=== PATIENT | female | born 1980 | race Caucasian/White ===

== ENCOUNTER → 2016-03-18 | Outpatient (CLI) | payer OTHER ==
[~2016-03-18] MED LIST: METHOTREXATE SODIUM (PF) 25 MG/ML 2 ML VIAL IM ONE
[2016-03-18 15:41] VITALS: BP 116/74; PULSE 73; RESP 16; TEMP 97.3
== END | disposition home or self-care (01) ==
LOC: PROCWHC3 14:11
PROVIDERS: ATTEND Obstetrics & Gynecology
DX: O00.90 Unspecified ectopic pregnancy without intrauterine pregnancy (principal); Z3A.00 Weeks of gestation of pregnancy not specified
CPT/HCPCS: 96402; J9260

== ENCOUNTER 2016-03-20 14:28 | Emergency (ER) | payer OTHER ==
--- NOTE | 2016-03-20 15:13 | ED ---
General Adult HPI - General Chief complaint: Abdominal Pain Stated complaint: Abd Pain Time Seen by Provider: 03/20/16 15:10 Source: patient Mode of arrival: ambulatory Limitations: no limitations - History of Present Illness Initial comments: Patient is a 36 old female presenting with abdominal pain, nausea. Patient states she woke up with right lower quadrant pain around 9:30 this morning. Patient had not taken Tylenol or Motrin. Patient states she had methotrexate on Thursday for an ectopic . 10 days ago patient presented to [facility] with the same pain for which she was diagnosed with ectopic as she had a positive test with an IUD. Patient denies fever, chills, chest pain, shortness breath. - Related Data Home Medications Medication Instructions Recorded Confirmed Ibuprofen [Motrin] 400 mg PO Q6HR PRN 03/20/16 03/20/16 Methotrexate Inj 1 injection SQ Q7D 03/20/16 03/20/16 Leah Iud 1 device VAGINAL DIRECTED 03/20/16 03/20/16 Previous Rx's Medication Instructions Recorded Ibuprofen [Motrin] 600 mg PO Q6HR PRN #20 tab 03/20/16 Allergies Allergy/AdvReac Type Severity Reaction Status Date / Time azithromycin [From Zithromax] Allergy Mild Itching Verified 03/20/16 14:52 Penicillins Allergy Unknown Unknown Verified 03/20/16 14:52 Childhood Review of Systems ROS Statement: Those systems with pertinent positive or pertinent negative responses have been documented in the HPI. Constitutional: No fever and no chills. HENT: No congestion, no rhinorrhea and no sore throat. Eyes: No discharge and no redness. Respiratory: No cough and no shortness of breath. Cardiovascular: No chest pain and no palpitations. Gastrointestinal: +nausea, no vomiting, +abdominal pain and no diarrhea. Genitourinary: No dysuria and no hematuria. Musculoskeletal: No back pain and no arthralgias. Skin: No pallor and no rash. Neurological: No dizziness and No headaches. ROS Other: All systems not noted in ROS Statement are negative. Past Medical History Past Medical History: No Reported History History of Any Multi-Drug Resistant Organisms: None Reported Past Surgical History: Section Additional Past Surgical History / Comment(s): January 2015 - IUD implantation Past Psychological History: No Psychological Hx Reported Smoking Status: Heavy tobacco smoker Past Alcohol Use History: None Reported Past Drug Use History: None Reported - Past Family History Mother Family Medical History: Cancer, Hypertension General Exam - General Exam Comments Initial Comments: Constitutional: Patient appears well-developed and well-nourished. No distress. Head: Normocephalic and atraumatic. Eyes: Conjunctivae and EOM are normal. Right eye exhibits no discharge. Left eye exhibits no discharge. No scleral icterus. Neck: Normal range of motion. Neck supple. Cardiovascular: Normal rate and regular rhythm. No murmur heard. Pulmonary/Chest: Effort normal and breath sounds normal. No respiratory distress. No wheezes. Abdominal: Soft. No distension. Negative McBurney's. Tenderness is right lower pelvic closer to midline. There is no rebound and no guarding. Musculoskeletal: Normal range of motion. No edema or tenderness. Neurological: Patient alert and oriented to person, place, and time. Skin: Skin is warm and dry. Not diaphoretic. Nursing notes and vitals reviewed. Limitations: no limitations Course Vital Signs 03/20/16 03/20/16 03/20/16 14:30 19:58 22:08 Temperature 97.9 F 97.8 F Pulse Rate 103 H 68 69 Respiratory 18 16 16 Rate Blood Pressure 117/77 116/70 119/59 O2 Sat by Pulse 100 99 98 Oximetry - Reevaluation(s) Reevaluation #1: On reevaluation patient is feeling better after morphine. Dr. Johnson was contacted and recommending ultrasound at this point. Medical Decision Making - Medical Decision Making Patient is a 36-year-old female currently being treated for ectopic as she had a positive test and negative IUP with IUD in place. Today patient had acute right lower quadrant pain for which she had 10 days ago when she was first diagnosed with ectopic . Patient is status post methotrexate treatment. Patient was given morphine with resolution of pain. CBC, BMP, UA unremarkable. Patient's beta hCG is 174. Ultrasound showed a right adnexal mass which is smaller than the original from ultrasound done 10 days ago. Care was discussed with Dr. Arriaga who agreed with management of patient and agreeable with disposition home. Patient was given education of ectopic and when to return to emergency Department. Prior to discharge, patient was resting comfortably in bed. Course of stay improved. Abdomen soft and nontender. Denies pain. Discussed physical exam and diagnostic tests with patient. Questions answered and patient is agreeable to discharge with close follow up with Primary Care Physician. Instructed to return to Emergency Department if symptoms worsen. - Lab Data Result diagrams: 03/20/16 16:08 03/20/16 16:08 Lab Results 03/20/16 03/20/16 03/20/16 Range/Units 16:08 16:08 16:08 WBC 10.3 (3.8-10.6) k/uL RBC 4.88 (3.80-5.40) m/uL Hgb 14.6 (11.4-16.0) gm/dL Hct 43.9 (34.0-46.0) % MCV 90.1 (80.0-100.0) fL MCH 29.9 (25.0-35.0) pg MCHC 33.2 (31.0-37.0) g/dL RDW 12.7 (11.5-15.5) % Plt Count 235 (150-450) k/uL Neutrophils % 81 % Lymphocytes % 15 % Monocytes % 2 % Eosinophils % 1 % Basophils % 0 % Neutrophils # 8.4 H (1.3-7.7) k/uL Lymphocytes # 1.6 (1.0-4.8) k/uL Monocytes # 0.2 (0-1.0) k/uL Eosinophils # 0.1 (0-0.7) k/uL Basophils # 0.0 (0-0.2) k/uL Sodium 140 (137-145) mmol/L Potassium 4.1 (3.5-5.1) mmol/L Chloride 103 (98-107) mmol/L Carbon Dioxide 25 (22-30) mmol/L Anion Gap 12 mmol/L BUN 9 (7-17) mg/dL Creatinine 0.70 (0.52-1.04) mg/dL Est GFR (MDRD) Af Amer >60 (>60 ml/min/1.73 sqM) Est GFR (MDRD) Non-Af >60 (>60 ml/min/1.73 sqM) Glucose 91 (74-99) mg/dL Calcium 9.5 (8.4-10.2) mg/dL HCG, Quant 174.7 mIU/mL Urine Color Light Yellow Urine Appearance Clear (Clear) Urine pH 6.5 (5.0-8.0) Ur Specific [place] 1.006 (1.001-1.035) Urine Protein Negative (Negative) Urine Glucose (UA) Negative (Negative) Urine Ketones Negative (Negative) Urine Blood Moderate H (Negative) Urine Nitrate Negative (Negative) Urine Bilirubin Negative (Negative) Urine Urobilinogen <2.0 (<2.0) mg/dL Ur Leukocyte Esterase Negative (Negative) Urine RBC 17 H (0-5) /hpf Urine WBC 3 (0-5) /hpf Ur Squamous Epith Cells 1 (0-4) /hpf Urine Bacteria Rare H (None) /hpf Urine Mucus Rare H (None) /hpf Disposition Clinical Impression: Abdominal pain, Ectopic Disposition: HOME SELF-CARE Condition: Good Instructions: Abdominal Pain (ED), Ectopic (ED) Prescriptions: Ibuprofen [Motrin] 600 mg PO Q6HR PRN #20 tab PRN Reason: Pain Referrals: Tameka Gordon MD [Primary Care Provider] - 1-2 days Jessee Arriaga DO [Doctor of Osteopathic Medicine] - 1-2 days
[2016-03-20] MEDS ORDERED: SODIUM CHLORIDE 0.9% 1,000 ML IV STA (15:38)
[2016-03-20 16:29] LABS: Basophils % (A) 0 %; CH 30.6; CHCM 34.1; Eosinophils # (A) 0.1 k/uL (0-0.7); Eosinophils % (A) 1 %; HCT 43.9 % (34.0-46.0); HGB 14.6 gm/dL (11.4-16.0); Luc # (Auto) 0.06; Luc % (Auto) 1; Lymphocytes # (A) 1.6 k/uL (1.0-4.8); Lymphocytes % (A) 15 %; MCH 29.9 pg (25.0-35.0); MCHC 33.2 g/dL (31.0-37.0); MCV 90.1 fL (80.0-100.0); Mean Platelet Volume 6.6; Monocytes # (A) 0.2 k/uL (0-1.0); Monocytes % (A) 2 %; Neutrophils # (A) 8.4 k/uL (1.3-7.7); Neutrophils % (A) 81 %; RBC 4.88 m/uL (3.80-5.40); RDW 12.7 % (11.5-15.5); WBC 10.3 k/uL (3.8-10.6); WBC (Perox) 9.92
[2016-03-20 16:39] LABS: Appearance,Urine Clear (Clear); Bacteria,Urine Rare /hpf; Bilirubin,Urine Negative (Negative); Glucose,Urine (UA) Negative (Negative); Ketones,Urine Negative (Negative); Leukocyte Esterase,Urine Negative (Negative); Mucus,Urine Rare /hpf; Nitrite,Urine Negative (Negative); PH, Urine 6.5 (5.0-8.0); Particle Count 2795; Protein,Urine Negative (Negative); RBC,Urine 17 /hpf (0-5); Specific Gravity,Urine 1.006 (1.001-1.035); Squamous Epithelial Cell,Urine 1 /hpf (0-4); UA Billing (MACRO vs. MICRO) MICRO; Urobilinogen,Urine <2.0 mg/dL (<2.0); WBC,Urine 3 /hpf (0-5)
[2016-03-20 16:42] LABS: Anion Gap 12 mmol/L; Blood Urea Nitrogen 9 mg/dL (7-17); Calcium 9.5 mg/dL (8.4-10.2); Carbon Dioxide 25 mmol/L (22-30); Chloride 103 mmol/L (98-107); Glucose 91 mg/dL (74-99); Non-African American GFR(MDRD) >60 (>60 ml/min/1.73 sqM); Potassium 4.1 mmol/L (3.5-5.1); Sodium 140 mmol/L (137-145)
[2016-03-20 16:57] LABS: HCG,Quantitative Serum 174.7 mIU/mL
[2016-03-20] MEDS ORDERED: MORPHINE SULFATE 4 MG/ML SYRINGE IVP STA (17:00)
[2016-03-20 20:00] VITALS: RESP 16; TEMP 97.8
--- NOTE | 2016-03-20 20:49 | US ---
EXAMINATION TYPE: US transvaginal DATE OF EXAM: 03/20/2016 8:04 PM COMPARISON: Ultrasound at [facility] March 09, 2016 CLINICAL HISTORY: Bleeding since 03/05/2016, ectopic rt side, 2 cycles of methotrexate,IUD. TECHNIQUE: Transvaginal (TV) Date of LMP: 03/05/2016 EXAM MEASUREMENTS: Uterus: 6.7 x 4.2 x 3.8 cm Endometrial Stripe: 0.6 cm Right Ovary: 3.2 x 2.4 x 2.1 cm Left Ovary: 2.7 x 1.5 x 1.7 cm ANATOMIC STRUCTURES: 1. Uterus: Anteverted wnl 2. Endometrium: IUD seen, appears low 3. Right Ovary: wnl 4. Left Ovary: wnl Spectral, color and waveform doppler imaging shows good arterial and venous flow within the ovaries ; there is no evidence for ovarian torsion. 5. Bilateral Adnexa: Rnight adnexal hypoechoic and relatively homogeneous-echotexture mass is seen adjacent to the rig ht ovary and uterus. This mass currently measures 2.0 x 2.0 x 1.9 cm. On the comparison ultrasound examination of March 09, 2016 this mass showed both solid and cysti c components and was, as such, more heterogeneous at that time and previously measured 3.8 x 3.5 x 2. 9 cm. 6. Posterior cul-de-sac: free fluid noted IMPRESSION: INTERVAL DECREASE IN THE RIGHT ADNEXAL MASS WHEN COMPARED WITH THE PRIOR ULTRASOUND OF MARCH 09 7.
[2016-03-20 22:09] VITALS: BP 119/59; PULSE 69
== END 2016-03-20 22:09 | disposition home or self-care (01) ==
LOC: EC 14:28
DX: O00.90 Unspecified ectopic pregnancy without intrauterine pregnancy (principal); Z97.5 Presence of (intrauterine) contraceptive device; Z88.0 Allergy status to penicillin; Z88.1 Allergy status to other antibiotic agents; F17.200 Nicotine dependence, unspecified, uncomplicated
CPT/HCPCS: 36415; 80048; 85025; 81001; 84702; 87086; 93975; 76830; 96374; 96361; 99284; J2270

== ENCOUNTER → 2016-03-25 | Outpatient (CLI) | payer OTHER | END | disposition home or self-care (01) | LOC: LABWHC1 13:01 | PROVIDERS: ATTEND Obstetrics & Gynecology | DX: O00.90 Unspecified ectopic pregnancy without intrauterine pregnancy (principal); Z3A.00 Weeks of gestation of pregnancy not specified | CPT/HCPCS: 36415; 84702 ==

== ENCOUNTER → 2016-03-28 | Outpatient (CLI) | payer OTHER | END | disposition home or self-care (01) | LOC: LABWHC1 14:12 | PROVIDERS: ATTEND Obstetrics & Gynecology | DX: O00.90 Unspecified ectopic pregnancy without intrauterine pregnancy (principal); Z3A.00 Weeks of gestation of pregnancy not specified | CPT/HCPCS: 36415; 84702 ==

== ENCOUNTER → 2016-04-02 | Outpatient (CLI) | payer OTHER | END | disposition home or self-care (01) | LOC: LABWHC1 07:38 | PROVIDERS: ATTEND Obstetrics & Gynecology | DX: O00.90 Unspecified ectopic pregnancy without intrauterine pregnancy (principal); Z3A.00 Weeks of gestation of pregnancy not specified | CPT/HCPCS: 36415; 84702 ==

== ENCOUNTER → 2016-04-10 | Outpatient (CLI) | payer OTHER | END | disposition home or self-care (01) | LOC: LABWHC1 07:26 | PROVIDERS: ATTEND Obstetrics & Gynecology | DX: O00.90 Unspecified ectopic pregnancy without intrauterine pregnancy (principal) | CPT/HCPCS: 36415; 84702 ==

== ENCOUNTER → 2016-04-18 | Outpatient (CLI) | payer OTHER | END | disposition home or self-care (01) | LOC: LABWHC1 09:38 | PROVIDERS: ATTEND Obstetrics & Gynecology | DX: O00.90 Unspecified ectopic pregnancy without intrauterine pregnancy (principal); Z3A.00 Weeks of gestation of pregnancy not specified | CPT/HCPCS: 36415; 84702 ==

== ENCOUNTER → 2016-07-07 | Outpatient (CLI) | payer OTHER | END | disposition home or self-care (01) | LOC: LABWHC1 16:15 | PROVIDERS: ATTEND Obstetrics & Gynecology | DX: Z34.90 Encounter for supervision of normal pregnancy, unspecified, unspecified trimester (principal); Z3A.00 Weeks of gestation of pregnancy not specified | CPT/HCPCS: 36415; 84702 ==

== ENCOUNTER → 2016-07-18 | Outpatient (CLI) | payer OTHER ==
[2016-07-18 16:10] LABS: CH 30.5; CHCM 34.7; HCT 40.3 % (34.0-46.0); HGB 13.7 gm/dL (11.4-16.0); MCV 88.2 fL (80.0-100.0); Mean Platelet Volume 7.1; RBC 4.57 m/uL (3.80-5.40); RDW 12.3 % (11.5-15.5); WBC 9.4 k/uL (3.8-10.6)
[2016-07-18 16:27] LABS: Glucose 83 mg/dL (74-99); Non-African American GFR(MDRD) >60 (>60 ml/min/1.73 sqM)
[2016-07-18 17:03] LABS: Hepatitis B Surface Ag Index 0.05
--- NOTE | 2016-07-19 14:03 | US ---
EXAMINATION TYPE: US OB <= 14 wk fetus DATE OF EXAM: 07/18/2016 3:52 PM COMPARISON: NONE CLINICAL HISTORY: Z36 Confirm dates; Smoker; (history ectopic right ovary March 2016 ) EXAM PERFORMED: Transabdominal (TA) EXAM MEASUREMENTS: GESTATIONAL AGE / DATING Physician Established: ( 7 weeks/6 days) EDC: 02/28/2017 Dates by LMP: (7 weeks/6 days) EDC: 02/28/2017 Dates by First Scan: today Dates by Current Scan for: (8 weeks/0 days) EDC: 02/27/2017 MATERNAL ANATOMY Uterus: 11.0 x 6.8 x 4.1cm Right Ovary: 2.8 x 1.7 x 2.0cm Left Ovary: 2.3 x 1.6 x 2.7cm Post CDS / Adnexa: wnl Presence of free fluid: no Presence of corpus luteal cyst: in right ovary = 1.9 x 1.5 x 1.5 Presence of subchorionic bleed: no GESTATION / SURVEY CRL: 1.6cm (8 weeks/0 days) Yolk Sac (normal less than 6mm): 3.9mm Heart Rate: 168 bpm Rhythm: Normal IUP: Viable IUP Date of LMP: 05/24/2016 Beta HcG (if available): NA Single, live, IUP, 8 weeks/0 days, EDC: 02/27/2017; HR 168bpm. IMPRESSION: VIABLE INTRAUTERINE GESTATION WITH A GESTATIONAL AGE OF 8 WEEKS +/- 5 DAYS. ESTIMATED DATE OF CONFINE MENT BASED ON THIS EXAMINATION IS 02/27/2017.
== END | disposition home or self-care (01) ==
LOC: RADUSWWP 15:33
PROVIDERS: ATTEND Obstetrics & Gynecology
DX: Z36 Encounter for antenatal screening of mother (principal); Z3A.08 8 weeks gestation of pregnancy
CPT/HCPCS: 36415; 76801; 82565; 82947; 85027; 86762; 86780; 86850; 86900; 86901; 87340

== ENCOUNTER → 2016-09-30 | Outpatient (CLI) | payer OTHER ==
[2016-10-01 09:06] LABS: Alpha Fetoprotein 57.2 ng/mL; B-HCG (M.O.M.) 0.77; Gestational Age (days) 4; Human Chorionic Gonadotropin 14.3 IU/mL; Inhibin A (M.O.M.) 0.88; Interpretation SeeBelow; Maternal Age at EDD (Yrs) 37; Smoker Yes; Unconjugated Estriol (M.O.M.) 1.48
== END | disposition home or self-care (01) ==
LOC: LABWHC1 13:27
PROVIDERS: ATTEND Obstetrics & Gynecology
DX: Z34.82 Encounter for supervision of other normal pregnancy, second trimester (principal)
CPT/HCPCS: 36415; 82105; 82677; 84702; 86336

== ENCOUNTER → 2016-12-22 | Outpatient (CLI) | payer OTHER ==
[2016-12-22 10:12] LABS: CH 29.7; CHCM 32.4; HCT 31.4 % (34.0-46.0); HDW 3.03; HGB 10.2 gm/dL (11.4-16.0); MCH 29.8 pg (25.0-35.0); MCHC 32.3 g/dL (31.0-37.0); MCV 92.3 fL (80.0-100.0); Mean Platelet Volume 7.1; RDW 12.9 % (11.5-15.5); WBC 8.3 k/uL (3.8-10.6)
== END | disposition home or self-care (01) ==
LOC: LABWHC1 08:32
PROVIDERS: ATTEND Obstetrics & Gynecology
DX: Z34.82 Encounter for supervision of other normal pregnancy, second trimester (principal); Z3A.00 Weeks of gestation of pregnancy not specified
CPT/HCPCS: 36415; 82950; 85027; 86850

== ENCOUNTER 2017-02-07 02:00 | Outpatient (CLI) | payer OTHER ==
[2017-02-07 03:30] VITALS: BP 122/77; PULSE 81; RESP 18; TEMP 97.7
--- NOTE | 2017-04-18 10:47 | P.MSEPDOC ---
Presenting Problems - Arrival Data Date of Arrival on Unit: 02/07/17 Time of Arrival on Unit: 02:08 Mode of Transport: Wheelchair Medical History - Information : 3 Para: 1 Term: 1 : 0 Abortions: Spontaneous or Elective: 1 Number of Living Children: 1 - Gestational Age Gestational Age by LAKSHMI (wks/days): 37 Weeks and 0 Days Vital Signs - Temperature Temperature: 97.7 F Temperature Source: Temporal Artery Scan - Pulse Right Pulse Oximetery Pulse Rate: 81 Pulse Assessment Method: Pulse Oximetry - Respirations Respiratory Rate: 18 Oxygen Delivery Method: Room Air O2 Sat by Pulse Oximetry: 97 - Blood Pressure Right Arm Blood Pressure: 122/77 Blood Pressure Mean: 92 Blood Pressure Source: Automatic Cuff Medical Screen Scoring (Post) - Cervical Exam Dilation: 1-3 cm = 1 Membranes: Intact - Uterine Contractions Frequency: > 5 minutes apart = 1 - Maternal Vital Signs Maternal Temperature: N/A Maternal Blood Pressure: N/A Signs of Preeclampsia: N/A Maternal Respirations: N/A - Pain Assessment Pain Location and Character: Abdomen Pain Scale Used: Numeric (1 - 10) Pain Intensity: 6 Pain Management Goal: 3 Pain Description: Cramping Pain Radiation Location: back Pain Frequency: Intermittent Pain Duration: 3 Pain Duration Units: Hours Pain Behavior: Vocalization Effects of Pain: none Pain Aggravating Factors: None Pharmacological Interventions: Discuss Pain Med Options Non-Pharmacological Interventions: Position/Reposition, Reduce Environmental Stimuli - Maternal Trauma Maternal Trauma: N/A - Assessment Heart Rate: 140 Heart Rate - NICHD Category: Category I (Normal) = 0 NST: Reactive Position: N/A Station: N/A - Total Score Total Score (Post): 2 - Post Treatment Level of Risk Post Treatment Level of Risk: Low (0-5) Physician Notification (Post) - Physician Notified Physician Notified Date: 02/07/17 Physician Notified Time: 02:26 Physician/Practitioner Notified:: tianna Spoke With: tianna New Order Received: Yes - Notification Comment Comment: Physician stated patient may either be discharged home or offered IV fluids and IV morphine. after the 1 hour cervical exam pt states contractions dont feel as close or strong and would like to go home. Disposition - Disposition OB Disposition: Discharge to home Discharge Date: 02/07/17 Discharge Time: 03:23 I agree with the RN Medical Screening Exam: Yes Risk & Benefit of care provided described in d/c instruction: Yes Diagnosis: FALSE LABOR AT OR AFTER 37 COMPLETED WEEKS OF GESTATION
== END 2017-02-07 03:23 | disposition home or self-care (01) ==
LOC: FBPOP 02:00
PROVIDERS: ATTEND Obstetrics & Gynecology
DX: O47.1 False labor at or after 37 completed weeks of gestation (principal); Z3A.37 37 weeks gestation of pregnancy
CPT/HCPCS: 59025; G0463; 99213

== ENCOUNTER 2017-02-12 16:59 | Outpatient (CLI) | payer OTHER ==
--- NOTE | 2017-04-29 17:43 | P.MSEPDOC ---
Presenting Problems - Arrival Data Date of Arrival on Unit: 02/12/17 Time of Arrival on Unit: 16:59 Mode of Transport: Ambulatory Medical History - Information : 3 Para: 1 Term: 1 : 0 Abortions: Spontaneous or Elective: 1 Number of Living Children: 1 - Gestational Age Gestational Age by LAKSHMI (wks/days): 37 Weeks and 5 Days Disposition - Disposition Discharge Date: 02/12/17 Discharge Time: 18:01 I agree with the RN Medical Screening Exam: Yes Physician's MSE Comment: Patient was sent over from the office for extended monitoring after there was variable on her NST. After extended monitoring there were no variables. She had moderate variability with accelerations. She was discharged home to follow- up in 2 days in the office for another NST. Risk & Benefit of care provided described in d/c instruction: Yes Diagnosis: 37 WEEKS GESTATION OF
== END 2017-02-12 18:01 | disposition home or self-care (01) ==
LOC: FBPOP 16:59
PROVIDERS: ATTEND Obstetrics & Gynecology
DX: O76 Abnormality in fetal heart rate and rhythm complicating labor and delivery (principal); Z3A.37 37 weeks gestation of pregnancy
CPT/HCPCS: 59025; G0463; 99213